=== PATIENT | male | born 1990 | race Caucasian/White ===

== ENCOUNTER 2020-12-12 20:41 | Emergency (ER) | payer SELFPAY ==
[~2020-12-12] VITALS: Ht 172.7 cm; Wt 91.0 kg
[2020-12-12 21:15] VITALS: BP 143/86
== END 2020-12-12 23:50 | disposition left against medical advice (07) ==
LOC: ER 22:13
DX: R07.9 Chest pain, unspecified (principal); Z86.16 Personal history of COVID-19
CPT/HCPCS: 99281